=== PATIENT | female | born 1965 | race Hispanic/Latino ===

== ENCOUNTER → 2023-12-14 10:59 | Outpatient (REF) | payer OTHER, SELFPAY | LOC: RAD 10:59 | PROVIDERS: ATTENDING PHYSICIAN Podiatrist Foot & Ankle Surgery; FAMILY PHYSICIAN Physician Assistant Medical | DX: M21.611 Bunion of right foot (principal) | CPT/HCPCS: 73630 ==

== ENCOUNTER 2024-10-18 06:19 | Day surgery (SDC) | payer OTHER, SELFPAY ==
[2024-10-09 08:51] LABS: Hematocrit 43.2 % (37.0-47.0); Hemoglobin 14.5 g/dL (12.0-16.0); Mean Corp Hgb Conc. 33.6 g/dL (33.0-37.0); Mean Corpuscular Hgb 30.1 pg (27.0-31.0); Mean Corpuscular Volume 89.8 fL (81.0-99.0); Mean Platelet Volume 11.5 fL (7.4-10.4); Platelet Count 270 10^3/uL (130-400); Red Blood Cell Count 4.81 10^6/uL (4.20-5.40); Red Cell Dist. Width 12.9 % (11.5-14.5); White Blood Cell Count 4.9 10^3/uL (4.8-10.8)
[2024-10-09 09:21] LABS: Blood Urea Nitrogen 13 mg/dl (7-17); Calcium 9.8 mg/dl (8.4-10.2); Carbon Dioxide 24 mmol/L (22-30); Chloride 105 mmol/L (98-107); Glucose 106 mg/dl (70-99); Potassium 4.1 mmol/L (3.5-5.1); Sodium 139 mmol/L (135-145); eGFR > 60.00
[2024-10-09 13:36] VITALS: BMI 28.1
[2024-10-18] VITALS (7 sets, daily range): BP systolic 94–142; BP diastolic 39–86; BMI 28.1
[2024-10-18] MEDS: NORMOSOL-R/PLASMALYTE-A 1000 IV (10:16)
[2024-10-18] MEDS: DILAUDID 0.5 MG IV (13:33)
[2024-10-18] MEDS: ROXICODONE 5 MG PO (14:46)
== END 2024-10-18 15:28 | disposition home or self-care (01) ==
LOC: SDS 06:19
PROVIDERS: ATTENDING PHYSICIAN Podiatrist Foot & Ankle Surgery; FAMILY PHYSICIAN Physician Assistant Medical
DX: M20.11 Hallux valgus (acquired), right foot (principal); M25.39 Other instability, other specified joint; M21.611 Bunion of right foot; M21.171 Varus deformity, not elsewhere classified, right ankle
CPT/HCPCS: 28297; 73630; 36415; 76000; 80048; 85027; C1713

== ENCOUNTER → 2024-11-13 07:33 | Outpatient (REF) | payer OTHER, SELFPAY | LOC: RAD 07:33 | PROVIDERS: ATTENDING PHYSICIAN Podiatrist Foot & Ankle Surgery; FAMILY PHYSICIAN Physician Assistant Medical | DX: M20.11 Hallux valgus (acquired), right foot (principal); M25.39 Other instability, other specified joint | CPT/HCPCS: 73630 ==

== ENCOUNTER 2024-12-09 09:02 | Outpatient (RCR) | payer OTHER, SELFPAY | END 2024-12-09 23:59 | disposition home or self-care (01) | LOC: RPT 09:02 | PROVIDERS: ATTENDING PHYSICIAN Podiatrist Foot & Ankle Surgery; FAMILY PHYSICIAN Physician Assistant Medical | DX: Z47.89 Encounter for other orthopedic aftercare (principal); M21.611 Bunion of right foot; Z73.6 Limitation of activities due to disability; R26.89 Other abnormalities of gait and mobility | CPT/HCPCS: 97110; 97116; 97140; 97162; 97530 ==

== ENCOUNTER 2025-01-08 09:10 | Outpatient (RCR) | payer OTHER, SELFPAY | END 2025-01-08 23:59 | disposition home or self-care (01) | LOC: RPT 09:10 | PROVIDERS: ATTENDING PHYSICIAN Podiatrist Foot & Ankle Surgery; FAMILY PHYSICIAN Physician Assistant Medical | DX: Z47.89 Encounter for other orthopedic aftercare (principal); M21.611 Bunion of right foot; R26.89 Other abnormalities of gait and mobility; Z73.6 Limitation of activities due to disability | CPT/HCPCS: 73630; 97110; 97140; 97530 ==

== ENCOUNTER 2025-01-28 11:41 | Emergency (ER) | payer OTHER, SELFPAY ==
[2025-01-28 12:07] VITALS: BP 154/91
[2025-01-28 12:26] LABS: % Basophils 1.4 % (0-2); % Eosinophils 3.3 % (0-6); % Immature Granulocytes 0.2 % (0-0.5); % Monocytes 11.6 % (1.7-9.3); % Neutrophils 48.5 % (42.2-75.2); Absolute Basophils 0.1 10^3/uL (0-0.2); Absolute Eosinophils 0.2 10^3/uL (0-0.7); Absolute Lymphocytes 1.8 10^3/uL (1.2-3.4); Absolute Monocytes 0.6 10^3/uL (0.1-0.6); Absolute Neutrophils 2.5 10^3/uL (1.4-6.5); Mean Corp Hgb Conc. 34.1 g/dL (33.0-37.0); Mean Corpuscular Hgb 30.6 pg (27.0-31.0); Mean Corpuscular Volume 89.7 fL (81.0-99.0); Mean Platelet Volume 11.3 fL (7.4-10.4); Nucleated Red Blood Cells % 0 %; Platelet Count 254 10^3/uL (130-400); Red Blood Cell Count 4.57 10^6/uL (4.20-5.40); Red Cell Dist. Width 13.6 % (11.5-14.5); White Blood Cell Count 5.1 10^3/uL (4.8-10.8)
[2025-01-28 12:40] LABS: ALT (SGPT) < 10 U/L (0-35); AST (SGOT) 32 U/L (14-36); Albumin 4.6 g/dl (3.5-5.0); Alkaline Phosphatase 70 U/L (38-126); Blood Urea Nitrogen 8 mg/dl (7-17); Calcium 9.8 mg/dl (8.4-10.2); Carbon Dioxide 24 mmol/L (22-30); Chloride 110 mmol/L (98-107); Glucose 106 mg/dl (70-99); Potassium 3.8 mmol/L (3.5-5.1); Sodium 141 mmol/L (135-145); Total Bilirubin 0.6 mg/dl (0.2-1.3); Total Protein 7.4 g/dl (6.3-8.2); eGFR > 60.00
[2025-01-28 12:50] LABS: Troponin I < 0.012 ng/ml
[2025-01-28 16:00] VITALS: BP 152/81
--- NOTE | 2025-01-28 16:07 | ED.GENMED ---
History of Present Illness
General
Chief Complaint: Chest Pain
Source: patient
Exam Limitations: none
Time Seen by Provider: 01/28/25 15:32
Nursing documentation reviewed up to this point in time: agreed with
History of Present Illness
History of Present Illness:
59-year-old female presents with chest pain describes a pressure onset yesterday is into her neck she feels nauseous has a headache took a Xanax with some relief return today took some aspirin her sister who is her Siamese twin has heart
disease, they had what sounds like a [id number] connection at [facility] at patient personally does not have any history of CAD, she recently had some foot surgery, social drinker not to excess, non-smoker
Past History
Past History
ED Past Medical History: Other ( Siamese twin)
ED Past Surgical History: Orthopedic (Fusion L4-5, L5 6, with rods and screws in 2009)
Social History
Tobacco: Non-smoker
Alcohol: Occasional
Drug: None
Personal: Single
Living: with family
Employment: Employed
Review of Systems
Review of Systems
All Other Systems: Not applicable
Constitutional: Denies fever or fatigue
Respiratory: Reports trouble breathing
Cardiac: Reports chest pain
ABD/GI: Reports nausea
Neurological: Reports headache
Endocrine: Reports no symptoms
Phy Exam
Physical Exam
Physical Exam:
Physical Exam
General: no apparent distress, not acutely ill
Neck: No jaundice
Heart: s1/s2 regular rate and rhythm, no murmur. equal radial pulses.
Lungs: no acute respiratory distress. clear bilaterally
Abdomen: Not tender
Neuro: alert and oriented. no focal neurological deficits
Skin: no rash
Psychiatric: well kept. interactive and cooperative
Extremities: No edema no calf pain
Scores
Heart Score for Chest Pain Patients
STEMI patient?: No
History: Moderately Suspicious
ECG: Normal
Age: >45 - <65 years
Risk Factors: 1 or 2 Risk Factors
Troponin: </= Normal Limit
Heart Score for Chest Pain Patients: 3
Heart Score Risk: 2.5% MACE over next 6 weeks
Course
Orders/Labs/Results
Orders:
Orders
01/28/25 11:44
EKG [Electrocardiogram (*1)] Urgent
Reason for Study: Chest Pain
EKG- Treatment ONCE
01/28/25 12:15
Complete Blood Count/With Diff Urgent
Comprehensive Metabolic Panel Urgent
NT-proBNP Urgent
Troponin I Urgent
01/28/25 15:49
CT Head W/o Iv Contrast Urgent
Comment:
Reason For Exam: headache
01/28/25 15:50
CT Chest PE Study Urgent
Comment:
Reason For Exam: sob cp
Pantoprazole [Protonix IV] 40 mg IV NOW STA
01/28/25 17:33
Add On- LAB Urgent
Tests Added?: pBNP
01/28/25 17:39
Ketorolac [Toradol] 30 mg IV NOW STA
01/28/25 18:18
Troponin I Urgent
Abnormal Lab Results
01/28/25
12:15
MPV 11.3 H fL
(7.4-10.4)
Monocytes % 11.6 H %
(1.7-9.3)
Chloride 110 H mmol/L
(98-107)
Glucose 106 H mg/dl
(70-99)
01/28/25 12:15
01/28/25 12:15
Vital Signs
Initial and Last Documented VS:
Initial Vital Signs
Temp Pulse Resp BP Pulse Ox
98.6 F 81 16 154/91 99
01/28/25 12:07 01/28/25 12:07 01/28/25 12:07 01/28/25 12:07 01/28/25 12:07
Last Documented Vital Signs
Temp Pulse Resp BP Pulse Ox
98.6 F 65 12 128/63 97
01/28/25 12:07 01/28/25 18:45 01/28/25 18:45 01/28/25 18:18 01/28/25 18:45
MDM/Problems Addressed
Differential Diagnosis Includes:
ACS dissection PE intracerebral hemorrhage
MDM/Problems Addressed:
Chest pain headache
*Radiology
Radiology exam reviewed: radiology read reviewed
*Pulse Oximetry
Patient hypoxic: no
*EKG
Interpreted by ED Provider?: Yes
Interpretation: normal
Comparison EKG: no comparison EKG present
Heart Rate: 78
Rate: normal
Ischemia: non-specific ST changes
*Cartridge Feeder Interpretation
Rate: normal and tachycardiac
Interpretation: normal
Heart Rate: 78
Rhythm: sinus
*Critical Care Note
Total Time (30-74mins, 75-104mins- exclusive of procedures): Not Applicable
Update Note
Update Note:
Update patient appears well CT of the head noted CT of the chest report noted, 2 undetectable troponins,
Discussed with patient and family report he would like to follow-up with Dr. Otero or her associates from [facility]
ED Attending Note
-
Portions of this chart may have been created with voice recognition software.� Occasional wrong word or��sound alike� substitutions may have occurred due to the inherent limitations of voice recognition software.
Discharge Plan
Departure
Patient Disposition: Home (Routine Discharge)
Date of Disposition: 01/28/25
Time of Disposition: 19:08
Patient with high blood pressure during this ER visit?: No
Condition: Good
Discharge Problem:
Chest pain
Instructions: Chest Pain DCA Follow Up
Prescriptions:
No Action
acetaminophen [Tylenol Ex Str Rapid Release] 500 mg Tablet
500 mg PO PRN PRN (Reason: pain)
clobetasol 0.05 % Ointment
1 applic TOPICAL DAILY PRN (Reason: eczema)
celecoxib [Celebrex] 100 mg Capsule
100 mg PO PRN PRN (Reason: pain)
Tobradex ST 0.3-0.05 % Drops,Suspension
1 drp OPHTHALMIC (EYE) DAILY
Rx Instructions:
right eye
Referrals:
Nery Isaac PA-C [Family Provider] - Next open appointment
Loren Otero MD [Active] - Next open appointment
Activity Restrictions/Additional Instructions:
Tylenol as needed for headache
Continue aspirin 81 mg a day
Follow-up with your primary care provider, Dr. Otero or her associates from cardiology
Interventions
Interventions:
*Risk Screen - Suicide Last Done: 01/28/25 12:07
*Neglect/Abuse Screening Last Done: 01/28/25 12:07
ED- Cardiac Assessment Last Done: 01/28/25 16:29
Discharge Date and Time
Print Language: BAHAMIAN
[2025-01-28] MEDS: PROTONIX IV 40 MG IV (16:24)
[2025-01-28 16:28] VITALS: BMI 30.6
[2025-01-28] MEDS: TORADOL 30 MG IV (17:53)
[2025-01-28 18:18] VITALS: BP 128/63
[2025-01-28 18:49] LABS: Troponin I < 0.012 ng/ml
[2025-01-28 19:00] VITALS: BP 123/66
== END 2025-01-28 19:47 | disposition home or self-care (01) ==
LOC: EMR 11:41
PROVIDERS: Emergency Medicine; EMERGENCY PHYSICIAN Emergency Medicine; FAMILY PHYSICIAN Physician Assistant Medical
DX: R07.89 Other chest pain (principal); R51.9 Headache, unspecified; Z82.49 Family history of ischemic heart disease and other diseases of the circulatory system
CPT/HCPCS: 99284; 96374; 96375; 70450; 71275; 80053; 83880; 84484; 85025; 93005; Q9967

== ENCOUNTER → 2025-02-18 12:20 | Outpatient (REF) | payer OTHER, SELFPAY | LOC: PET 12:20 | PROVIDERS: ATTENDING PHYSICIAN Internal Medicine Cardiovascular Disease | DX: R07.89 Other chest pain (principal) | CPT/HCPCS: 78431; A9555; J2785 ==

== ENCOUNTER → 2025-02-21 07:02 | Outpatient (REF) | payer OTHER, SELFPAY | LOC: RCS 07:02 | PROVIDERS: ATTENDING PHYSICIAN Internal Medicine Cardiovascular Disease; FAMILY PHYSICIAN Physician Assistant Medical | DX: R07.89 Other chest pain (principal) | CPT/HCPCS: 93306 ==

== ENCOUNTER 2025-06-27 06:11 | Day surgery (SDC) | payer OTHER, SELFPAY ==
[2025-06-27 11:39] VITALS: BMI 28.8
[2025-06-27] MEDS: NORMOSOL-R/PLASMALYTE-A 1000 IV (11:47)
[2025-06-27 11:55] VITALS: BP 156/79
[2025-06-27 13:40] VITALS: BP 104/54
[2025-06-27 14:00] VITALS: BP 120/66
[2025-06-27] MEDS: ROXICODONE 5 MG PO (14:05)
[2025-06-27 14:15] VITALS: BP 116/62
[2025-06-27 14:30] VITALS: BP 102/58
== END 2025-06-27 14:49 | disposition home or self-care (01) ==
LOC: SDS 06:11
PROVIDERS: ATTENDING PHYSICIAN Podiatrist Foot & Ankle Surgery; FAMILY PHYSICIAN Physician Assistant Medical
DX: T84.293A Other mechanical complication of internal fixation device of bones of foot and toes, initial encounter (principal); Y93.9 Activity, unspecified
CPT/HCPCS: 20680